=== PATIENT | male | born 1985 | race Caucasian/White ===

== ENCOUNTER → 2017-06-26 | Outpatient (CLI) | payer MEDICARE, BC, MEDICAID | LOC: CFH 12:56 | PROVIDERS: ATTEND Nurse Practitioner Family | DX: M25.562 Pain in left knee (principal); G89.29 Other chronic pain ==

== ENCOUNTER 2020-09-13 11:59 | Emergency (ER) | payer MEDICARE, MEDICAID ==
[~2020-09-13] VITALS: Ht 177.8 cm; Wt 75.0 kg
[2020-09-13 12:03] VITALS: BP 120/71
[2020-09-13] MEDS ORDERED: IBUPROFEN 800 MG TABLET PO ONE (12:30)
[2020-09-13] MEDS ORDERED: METHOCARBAMOL 750 MG TABLET ONE (13:03)
[2020-09-13] MEDS ORDERED: NEOSPORIN OINT. PKT 1 PACKET ONE (13:07)
--- NOTE | 2020-09-13 13:10 | NUR ---
Task rn:patient medicated per emar for back pain at 09/30 emt at bedside to dress wounds
[2020-09-13] MEDS ORDERED: METHOCARBAMOL 750 MG TABLET PO ONE (13:30)
== END 2020-09-13 14:10 | disposition home or self-care (01) ==
LOC: ED 12:08
DX: S39.012A Strain of muscle, fascia and tendon of lower back, initial encounter (principal); S30.810A Abrasion of lower back and pelvis, initial encounter; V19.49XA Pedal cycle driver injured in collision with other motor vehicles in traffic accident, initial encounter; Y93.55 Activity, bike riding; Y92.410 Unspecified street and highway as the place of occurrence of the external cause; Y99.8 Other external cause status
CPT/HCPCS: 72110; 72170; 99284

== ENCOUNTER → 2020-09-17 | Outpatient (CLI) | payer MEDICARE, MEDICAID ==
[2020-09-17 09:24] LABS: BASOPHILS % (AUTO) 1 % (0-1); EOSINOPHILS % (AUTO) 3 % (1-7); LYMPHOCYTES % (AUTO) 24 % (22-44); MEAN CORPUSCULAR HEMOGLOBIN 31.2 pg (27.5-34.5); MEAN CORPUSCULAR HGB CONC 34.1 g/dL (33.2-36.2); MEAN PLATELET VOLUME 7.6 fL (7.4-10.4); MONOCYTES % (AUTO) 11 % (2-9); NEUTROPHILS % (AUTO) 61 % (42-75); PLATELET COUNT 317 x10^3/uL (130-400); RED BLOOD COUNT 4.49 x10^6/uL (4.38-5.82); RED CELL DISTRIBUTION WIDTH 13.7 % (9.4-14.8)
[2020-09-17 09:32] LABS: ALBUMIN 3.7 g/dL (3.4-5.0); ANION GAP 4 mmol/L (5-15); CALCIUM 9.2 mg/dL (8.5-10.1); CHLORIDE 107 mmol/L (98-107); MD NO
[2020-09-17 09:42] LABS: ALANINE AMINOTRANSFERASE 42 U/L (12-78); ALKALINE PHOSPHATASE 72 U/L (45-117); BILIRUBIN,TOTAL 0.7 mg/dL (0.2-1.0); CHOL/HDL RATIO 3.9; CHOLESTEROL, TOTAL 152 mg/dL (140-239); CREATININE 1.08 mg/dL (0.7-1.3); FREE T4 (FREE THYROXINE) 0.86 ng/dL (0.76-1.46); HDL CHOL % 26 % (26-37); HDL CHOLESTEROL (DIRECT) 39 mg/dL (40-60); LDL CHOLESTEROL,CALCULATED 90 mg/dL (54-169); LDL/HDL RATIO 2.3 (0.5-3.0); TOTAL PROTEIN 6.9 g/dL (6.4-8.2); TRIGLYCERIDES 116 mg/dL (50-200); VLDL CHOLESTEROL 23 mg/dL (0-25)
== END | disposition home or self-care (01) ==
LOC: LAB 08:47
PROVIDERS: ATTEND Nurse Practitioner
DX: K21.9 Gastro-esophageal reflux disease without esophagitis (principal); E78.2 Mixed hyperlipidemia
CPT/HCPCS: 36415; 80053; 80061; 84439; 84443; 85025

== ENCOUNTER 2020-12-16 13:48 | Outpatient (CLI) | payer MEDICARE, MEDICAID | END 2020-12-16 23:59 | disposition home or self-care (01) | LOC: CFH 13:48 | PROVIDERS: ATTEND Nurse Practitioner | DX: S83.512A Sprain of anterior cruciate ligament of left knee, initial encounter (principal); S83.282A Other tear of lateral meniscus, current injury, left knee, initial encounter; X58.XXXA Exposure to other specified factors, initial encounter; Y93.89 Activity, other specified; Y92.89 Other specified places as the place of occurrence of the external cause; Y99.8 Other external cause status ==